=== PATIENT | female | born 1950 | race Caucasian/White ===

== ENCOUNTER → 2019-11-23 12:53 | Outpatient (BNVA) | payer MEDICARE, SELFPAY | PROVIDERS: Family Provider Family Medicine; Visit Provider Internal Medicine | DX: E03.9 Hypothyroidism, unspecified (principal); I48.91 Unspecified atrial fibrillation | CPT/HCPCS: 99203 ==

== ENCOUNTER 2020-01-10 15:46 | Outpatient (CLI) | payer MEDICARE, SELFPAY ==
[2020-01-10 16:43] LABS: Free T4 Free Thyroxine 1.87 ng/dL (0.82-1.77); Thyroid Stimulating Hormone 0.33 uIU/mL (0.27-4.20)
== END 2020-01-10 15:47 | disposition home or self-care (01) ==
LOC: LAB 15:52
PROVIDERS: PCP Internal Medicine; Visit Provider Internal Medicine
DX: E03.9 Hypothyroidism, unspecified (principal); I48.91 Unspecified atrial fibrillation; K21.9 Gastro-esophageal reflux disease without esophagitis; M79.7 Fibromyalgia
CPT/HCPCS: 84439; 84443; 99214

== ENCOUNTER 2020-03-02 08:16 | Outpatient (CLI) | payer MEDICARE, SELFPAY ==
--- NOTE | 2020-03-02 08:20 | MM_ITS ---
WS: [id number] SCREENING DIGITAL MAMMOGRAM WITH CAD HISTORY: SCREENING COMPARISON: 07/09/2017 and 01/17/2016 Bilateral CC and MLO views submitted. Computer aided detection analyzed. Breast composition: There are scattered areas of fibroglandular density. No suspicious masses, microc alcifications or architectural distortion. MM/[place] [id number] IMPRESSION: BI-RADS: 1-Negative FOLLOW UP: 1 Year Follow-up
== END 2020-03-02 08:17 | disposition home or self-care (01) ==
LOC: RADSHAW 08:18
PROVIDERS: PCP Internal Medicine; Visit Provider Internal Medicine
DX: Z12.31 Encounter for screening mammogram for malignant neoplasm of breast (principal)
CPT/HCPCS: 77067

== ENCOUNTER → 2020-03-14 10:47 | Outpatient (BNVA) | payer MEDICARE, SELFPAY | PROVIDERS: PCP Internal Medicine; Visit Provider Internal Medicine | DX: E03.9 Hypothyroidism, unspecified (principal); I48.91 Unspecified atrial fibrillation; K21.9 Gastro-esophageal reflux disease without esophagitis; M79.7 Fibromyalgia | CPT/HCPCS: 99214 ==

== ENCOUNTER 2020-05-05 12:26 | Outpatient (CLI) | payer MEDICARE, SELFPAY ==
[2020-05-05 13:19] LABS: Free T4 Free Thyroxine 1.72 ng/dL (0.82-1.77); Thyroid Stimulating Hormone 0.63 uIU/mL (0.27-4.20)
== END 2020-05-05 12:27 | disposition home or self-care (01) ==
PROVIDERS: PCP Internal Medicine; Visit Provider Internal Medicine
DX: E03.9 Hypothyroidism, unspecified (principal)
CPT/HCPCS: 36415; 84439; 84443

== ENCOUNTER → 2020-05-12 10:40 | Outpatient (BNVA) | payer MEDICARE, SELFPAY | PROVIDERS: PCP Internal Medicine; Visit Provider Internal Medicine | DX: E03.9 Hypothyroidism, unspecified (principal); I48.91 Unspecified atrial fibrillation; K21.9 Gastro-esophageal reflux disease without esophagitis; M79.7 Fibromyalgia; R19.7 Diarrhea, unspecified | CPT/HCPCS: 99214 ==

== ENCOUNTER 2020-07-07 15:34 | Outpatient (CLI) | payer MEDICARE, SELFPAY ==
--- NOTE | 2020-07-07 15:57 | USR_ITS ---
PROCEDURE INFORMATION: Exam: US Duplex Left Lower Extremity Veins, Limited Exam date and time: 07/07/2020 4:13 PM Age: 69 years old Clinical indication: Pain; Leg, upper and leg, lower; Left; Prior surgery; Surgery date: 6+ months; Surgery type: Lt knee; Additional info: Lt leg pain and swelling TECHNIQUE: Imaging protocol: Real-time Duplex ultrasound of the Left Lower Extremity with 2-D coppola scale, color Doppler flow and spectral waveform analysis with image documentation. Limited exam focused on the left lower extremity veins. COMPARISON: No relevant prior studies available. FINDINGS: Left deep veins: Unremarkable. The common femoral, femoral, proximal profunda femoral and popliteal veins are patent without thrombus. Normal Doppler waveforms. Normal compressibility and/or augmentation response. Left superficial veins: There is thrombus throughout the left small saphenous vein and there also some thrombosed superficial varicosities in the left calf. Soft tissues: Unremarkable. US/CV venous duplex [facility] [id number] IMPRESSION: 1. No evidence of deep vein thrombosis. 2. Superficial venous thrombosis in the small saphenous vein and varicosities in the calf.
== END 2020-07-07 15:35 | disposition home or self-care (01) ==
LOC: RAD 15:41
PROVIDERS: PCP Internal Medicine; Visit Provider Nurse Practitioner Family
DX: M79.662 Pain in left lower leg (principal); I83.90 Asymptomatic varicose veins of unspecified lower extremity
CPT/HCPCS: 93971

== ENCOUNTER 2020-11-15 09:19 | Outpatient (CLI) | payer MEDICARE, SELFPAY ==
--- NOTE | 2020-11-15 09:30 | USCV_ITS ---
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 PROCEDURES: The venous duplex Doppler examination of both lower extremities was performed in the standard fashion. The following venous structures were evaluated: common femoral vein, the greater saphenous vein, femoral vein, and the popliteal vein, and the ptv veins and ssv. FINDINGS: See tech notes The veins were found to be easily compressible with spontaneous blood flow. Non pulsatile flow pattern. CONCLUSIONS 1. No evidence of DVT in the above-mentioned identifiable veins. 2. Significant venous reflux of greater than 500 ms were noted at the proximal, mid, distal and below-knee segments of the greater saphenous vein on the right side. The venous segments were measuring anywhere from 0.47 to 0.59 cm in diameter. The above-knee venous segments were greater than 1 cm deep from the surface. No significant reflux in the small saphenous veins 3. On the left side, significant venous reflux of greater than 500 ms were noted throughout the greater saphenous vein segments including the saphenofemoral junction. These venous segments were measuring anywhere from 0.41 to 0.84 cm in diameter. But all these segments were less than 1 cm deep from the surface. 4. The proximal small saphenous vein segment on the left side also was found to have significant reflux of greater than 500 ms. The venous segments were found to be around 1 cm deep from the surface. 5. A large superficial , posterior accessory vein on the right side, draining into the greater saphenous vein was found to have thrombus. Compared to the study from 07/09/2017, more venous segments are found to have significant reflexes. Dr Soheila Harris MD [facility] (Electronically Signed) Final Date: 20 November 2020 09:29 S
== END 2020-11-15 09:20 | disposition home or self-care (01) ==
LOC: US 09:23
PROVIDERS: PCP Internal Medicine; Visit Provider Internal Medicine Cardiovascular Disease
DX: I82.812 Embolism and thrombosis of superficial veins of left lower extremity (principal); I83.813 Varicose veins of bilateral lower extremities with pain; I87.2 Venous insufficiency (chronic) (peripheral)
CPT/HCPCS: 93970

== ENCOUNTER → 2020-12-04 13:00 | Outpatient (BNVA) | payer MEDICARE, SELFPAY | PROVIDERS: PCP Internal Medicine; Visit Provider Podiatrist Foot & Ankle Surgery | DX: M25.572 Pain in left ankle and joints of left foot (principal) | CPT/HCPCS: 73630 ==

== ENCOUNTER → 2021-04-20 10:19 | Outpatient (BNVA) | payer MEDICARE, SELFPAY | PROVIDERS: PCP Family Medicine; Visit Provider Internal Medicine | DX: E03.9 Hypothyroidism, unspecified (principal); I48.91 Unspecified atrial fibrillation; M79.7 Fibromyalgia; K21.9 Gastro-esophageal reflux disease without esophagitis; R19.7 Diarrhea, unspecified; N89.8 Other specified noninflammatory disorders of vagina; Z87.891 Personal history of nicotine dependence | CPT/HCPCS: 36415; 84439; 84443; 99214 ==

== ENCOUNTER 2021-04-20 11:30 | Outpatient (CLI) | payer MEDICARE, SELFPAY ==
[2021-04-20 13:33] LABS: Thyroid Stimulating Hormone 0.65 uIU/mL (0.27-4.20)
== END 2021-04-20 11:31 | disposition home or self-care (01) ==
PROVIDERS: PCP Family Medicine; Visit Provider Internal Medicine
DX: E03.9 Hypothyroidism, unspecified (principal)
CPT/HCPCS: 36415; 84439; 84443

== ENCOUNTER → 2021-10-19 10:50 | Outpatient (BNVA) | payer MEDICARE, SELFPAY | PROVIDERS: PCP Family Medicine; Visit Provider Internal Medicine | DX: Z87.891 Personal history of nicotine dependence (principal); E03.9 Hypothyroidism, unspecified; E11.9 Type 2 diabetes mellitus without complications; I48.91 Unspecified atrial fibrillation; M79.7 Fibromyalgia; K21.9 Gastro-esophageal reflux disease without esophagitis; R19.7 Diarrhea, unspecified; N89.8 Other specified noninflammatory disorders of vagina | CPT/HCPCS: 99214 ==

== ENCOUNTER 2021-10-23 09:59 | Outpatient (CLI) | payer MEDICARE, SELFPAY ==
--- NOTE | 2021-10-23 10:11 | MM_ITS ---
WS: [email or web address] VIEWS: MLO and CC views both breasts. 3D digital tomosynthesis is also included in this exam. Comparison made with prior exam of 04/24/2012, 07/26/2014, 01/17/2016, 07/09/2017, 03/02/2020.. Findings: Questionable new 3 mm nodular densities seen in the lateral inferior left breast. This is seen only o n the MLO view and the lateral tomographic sections. Additional stable appearing nodular densities in both breasts. No suspicious calcification or architectural distortion.Scattered fibroglandular densi ties. Compression spot imaging of the left breast as well as regional ultrasound recommended for further wo rkup. MM/[place] [id number] Impression: BI-RADS: 0-Incomplete: Need additional imaging evaluation FOLLOW-UP: See Report This mammogram was also analyzed by the Computer Aided Detection System R2 Imag e Water Fabricator Operator.
== END 2021-10-23 10:00 | disposition home or self-care (01) ==
LOC: RAD 10:00
PROVIDERS: PCP Family Medicine; Visit Provider Family Medicine
DX: Z12.31 Encounter for screening mammogram for malignant neoplasm of breast (principal)
CPT/HCPCS: 77063; 77067

== ENCOUNTER 2021-11-07 09:08 | Outpatient (CLI) | payer MEDICARE, SELFPAY ==
--- NOTE | 2021-11-07 09:33 | US_ITS ---
WS: [email or web address] Exam: US breast LT limited* [id number] Date/Time of Exam: 11/07/2021 10:17 AM Reason For Exam: BREAST MASS Regional ultrasound of the left breast is performed from the 5:00 to the 7:00 position. There was no sign of suspicious solid mass or nodule. No cysts were identified in this region. The 3 mm nodule reported on recent mammography and compression spot images cannot be localized with ultraso und. Recommendations: 6 month follow-up left mammogram for surveillance to detect any change. US/US breast LT limited* [id number] IMPRESSION: 1. No suspicious solid mass or nodule identified. BI-RADS Category 3.
--- NOTE | 2021-11-07 09:33 | MM_ITS ---
WS: [email or web address] VIEWS: MLO and 90 degree lateral views of the left breast are obtained. Compression spot MLO and late ral images also included in this series. 3D digital tomosynthesis is also performed.. Comparison made with prior exam of 10/23/2021. Findings: Again noted is a 3 mm nodule in the inferior left breast lateral to the nipple line. This nodule may have a small fatty hilum and might indicate an intramammary lymph node. No architectural distortion o r suspicious calcification is seen. Scattered stable-appearing fibroglandular densities noted through out the right breast. Further workup with regional ultrasound is recommended. MM/[place] [id number] Impression: BI-RADS: 0-Incomplete: Need additional imaging evaluation FOLLOW-UP: See Report This mammogram was also analyzed by the Computer Aided Detection System R2 Imag e Private Tutor.
== END 2021-11-07 09:09 | disposition home or self-care (01) ==
PROVIDERS: PCP Family Medicine; Visit Provider Family Medicine
DX: N63.23 Unspecified lump in the left breast, lower outer quadrant (principal)
CPT/HCPCS: 76642; 77061

== ENCOUNTER → 2021-12-18 10:54 | Outpatient (BNVA) | payer MEDICARE, SELFPAY | PROVIDERS: PCP Family Medicine; Visit Provider Internal Medicine | DX: E03.9 Hypothyroidism, unspecified (principal); I48.91 Unspecified atrial fibrillation; K21.9 Gastro-esophageal reflux disease without esophagitis | CPT/HCPCS: 99214 ==

== ENCOUNTER → 2022-03-15 11:50 | Outpatient (BNVA) | payer BC, SELFPAY | PROVIDERS: PCP Family Medicine; Visit Provider Family Medicine | DX: Z13.6 Encounter for screening for cardiovascular disorders (principal); Z13.1 Encounter for screening for diabetes mellitus; R19.7 Diarrhea, unspecified; Z12.11 Encounter for screening for malignant neoplasm of colon | CPT/HCPCS: 80053; 80061; 86364 ==

== ENCOUNTER → 2022-04-01 10:36 | Outpatient (BNVA) | payer MEDICARE, SELFPAY | PROVIDERS: PCP Family Medicine; Visit Provider Internal Medicine Cardiovascular Disease | DX: I83.813 Varicose veins of bilateral lower extremities with pain (principal); I48.91 Unspecified atrial fibrillation; K21.9 Gastro-esophageal reflux disease without esophagitis; E03.9 Hypothyroidism, unspecified; Z87.891 Personal history of nicotine dependence | CPT/HCPCS: 99214; Q3014 ==

== ENCOUNTER 2022-05-08 10:13 | Outpatient (CLI) | payer MEDICARE, SELFPAY ==
--- NOTE | 2022-05-08 10:19 | MM_ITS ---
WS: [email or web address] ADDITIONAL VIEWS LEFT MAMMOGRAM WITH DIGITAL BREAST TOMOSYNTHESIS. HISTORY: 6MFU COMPARISON: 11/07/2021, 10/24/1999 2200 03/02/2020 Additional views LEFT breast in CC, MLO projections and true ML submitted with digital breast tomosyn thesis and SM. Spot compression LEFT MLO. 4 to 5 mm nodule is reidentified along the inferior posterior LEFT breast near the inframammary fold. This has not increased in size and does measure just slightly smaller. This nodule would not likely be visualized by ultrasound. Due to stability no ultrasound will be obtained today. Patient to follow -up in 6 months for annual mammogram. MM/[place] [id number] IMPRESSION: BI-RADS: 3-Probably Benign FOLLOW UP: 6 Month Follow-up Patient to return in October 2022 for annual mammogram. This very small nodule a long the inferior posterior LEFT breast can be reevaluated at that that time.
== END 2022-05-08 10:14 | disposition home or self-care (01) ==
PROVIDERS: PCP Family Medicine; Visit Provider Family Medicine
DX: R92.8 Other abnormal and inconclusive findings on diagnostic imaging of breast (principal)
CPT/HCPCS: 77061; G0279

== ENCOUNTER 2022-06-18 11:32 | Outpatient (CLI) | payer BC, SELFPAY ==
[2022-06-18 13:42] LABS: Free T4 Free Thyroxine 1.47 ng/dL (0.82-1.77); Thyroid Stimulating Hormone 1.08 uIU/mL (0.27-4.20)
== END 2022-06-18 11:33 | disposition home or self-care (01) ==
PROVIDERS: PCP Family Medicine; Visit Provider Internal Medicine
DX: E03.9 Hypothyroidism, unspecified (principal); I48.91 Unspecified atrial fibrillation
CPT/HCPCS: 36415; 84439; 84443

== ENCOUNTER 2022-06-25 08:28 | Outpatient (CLI) | payer BC, SELFPAY ==
--- NOTE | 2022-06-25 08:35 | CT_ITS ---
WS: [id number] CT NECK WITH CONTRAST HISTORY: CHRONIC COUGH, PAIN IN THROAT, DYSPHAGIA TECHNIQUE: Contiguous 5 mm axial images are performed through the neck with intravenous contrast. Sag ittal and coronal reformats are also submitted. All CT scans at [facility] use at least one o f these dose optimization techniques: automated exposure control; mA and/or kV adjustment per patient size (includes targeted exams where dose is matched to clinical indication); or iterative reconstruc tion. CONTRAST: CONTRAST: Omnipaque 350; 100 mL IV. DLP: 147.22 mGy.cm COMPARISON: None available. Nasopharynx, oropharynx, hypopharynx and larynx are unremarkable. No soft tissue masses or abnormal e nhancement. No abnormality identified along the roof of the mild broad-based. Torus tubarius and fossa of Rosenmuller and parapharyngeal fat are normal. No significant lymphadenopathy is identified. Peripherally calcified 10 mm nodule superior RIGHT thyroid. There is an additional smaller mid thyroi d nodule on the RIGHT. No osseous abnormalities. Visualized portions of the skull base demonstrate no abnormalities. Orbits and globes are within norm al limits. No soft tissue masses. Visualized paranasal sinuses and mastoid air cells are normal. Spiculated nodule measuring 14 x 15 mm at the RIGHT apex. This is asymmetric to the LEFT. CT/CT neck w con* [id number] IMPRESSION: 1. No neck mass or abnormality noted in the oral cavity. 2. No cervical chain lymphadenopathy. 3. Spiculated nodule RIGHT upper lobe measures 14 x 15 mm. Recommend follow-up chest CT with IV contrast versus PET/CT imaging. Differential includes neoplas m versus pulmonary fibrosis.
--- NOTE | 2022-06-25 08:36 | FL_ITS ---
WS: [email or web address] Barium swallow and esophagram, 06/25/2022 Clinical Data: CHRONIC COUGH, PAIN IN THROAT, DYSPHAGIA Comparison: None. Fluoroscopy time: 0min [id number] # of spot films: Findings: The patient swallowed the thick and thin barium, and it flowed through the hypopharynx without hesita tion. No stricture, mass, polyp or erosion was seen. The barium entered the esophagus and there was normal motility throughout. There is minimal irregular ity of the esophageal surface in the distal half of the esophagus. There was no hiatal hernia but the re is minimal gastroesophageal reflux. No polyp, mass, erosion or ulcer could be seen. FL/FL barium swallow [id number] Impression: 1. Minimal irregularity of this mucosal surface of the distal half of the esoph yessenia. 2. No hiatal hernia but there is minimal gastroesophageal reflux.
[2022-06-25 09:01] LABS: Blood Urea Nitrogen 17 mg/dL (8-23); Glomerular Filtration Rate 49.2 mL/min (90-130)
[2022-06-25] MEDS: iohexol 350 mg/mL 500 mL Btl (per mL) IV (09:10)
== END 2022-06-25 08:29 | disposition home or self-care (01) ==
PROVIDERS: Radiology Neuroradiology; PCP Family Medicine; Visit Provider Otolaryngology
DX: R05.3 Chronic cough (principal); R13.12 Dysphagia, oropharyngeal phase; R91.1 Solitary pulmonary nodule
CPT/HCPCS: 70491; 74220; 82565; 84520; Q9967

== ENCOUNTER 2022-08-06 09:41 | Outpatient (CLI) | payer BC, SELFPAY ==
--- NOTE | 2022-08-06 09:52 | CT_ITS ---
WS: [email or web address] CT chest w con* [id number] HISTORY: CHRONIC COUGH, SOLITARY PULMONARY NODULE TECHNIQUE: Axial imaging performed through the thorax. Coronal and sagittal reformats are submitted. All CT scans at [facility] use at least one of these dose optimization techniques: automated exposure control; mA and/or kV adjustment per patient size (includes targeted exams where dose is mat ched to clinical indication); or iterative reconstruction. CONTRAST: Omnipaque 350; 100 mL IV. DLP: 182.83 mGy.cm COMPARISON: Neck CT 06/25/2022 Lungs and central airway: Mild emphysema. Slightly spiculated nodule with adjacent groundglass attenu ation at the RIGHT apex. Solid component measures 1.5 x 0.7 cm. There is mild pleural tag towards the apex. This nodule corresponds to the nodule recently described on the prior neck CT. The nodule appe ars slightly smaller in size with less adjacent groundglass attenuation. Scattered granulomata. No ad ditional masses or nodules. Pleura: Normal. No pleural effusion. Heart and pericardium: Moderately enlarged heart. Marked enlargement of the RIGHT atrium. Mediastinum and prudence: No mediastinum or hilar adenopathy. Vessels: Mild atherosclerosis aorta. Normal size pulmonary artery. Chest wall and lower neck: No soft tissue masses. Upper abdomen: No adrenal mass. Visualized portions of the liver and spleen are negative. Osseous structures: No destructive process. CT/CT chest w con* [id number] IMPRESSION: 1. Spiculated mass with surrounding groundglass attenuation RIGHT apex. Solid component measures 1.5 x 0.7 cm. Slight improvement in the size since 06/25/2022 . Differential includes neoplasm and pneumonia/pneumonitis. Recommend PET/CT im aging at this time versus [address] with IV contrast follow-up. 2. Cardiomegaly with moderate enlargement of the RIGHT atrium. 3. Mild atherosclerosis aorta. 4. Prior granulomatous disease.
[2022-08-06] MEDS: iohexol 350 mg/mL 500 mL Btl (per mL) IV (10:04)
== END 2022-08-06 09:42 | disposition home or self-care (01) ==
PROVIDERS: PCP Family Medicine; Visit Provider Specialist
DX: R91.1 Solitary pulmonary nodule (principal); R05.3 Chronic cough; I51.7 Cardiomegaly; I70.0 Atherosclerosis of aorta
CPT/HCPCS: 71260; Q9967

== ENCOUNTER → 2022-08-22 11:31 | Outpatient (BNVA) | payer BC, SELFPAY | PROVIDERS: PCP Family Medicine; Visit Provider Family Medicine | DX: K21.9 Gastro-esophageal reflux disease without esophagitis (principal); R91.8 Other nonspecific abnormal finding of lung field | CPT/HCPCS: 80053; 82306; 82607; 85025 ==

== ENCOUNTER 2022-10-30 13:43 | Outpatient (CLI) | payer MEDICARE, SELFPAY ==
--- NOTE | 2022-10-30 14:00 | CT_ITS ---
WS: [email or web address] CT chest w con* [id number] HISTORY: Spiculated mass w groundglass attenuation RIGHT apex TECHNIQUE: Axial imaging performed through the thorax. Coronal and sagittal reformats are submitted. All CT scans at [facility] use at least one of these dose optimization techniques: automated exposure control; mA and/or kV adjustment per patient size (includes targeted exams where dose is mat ched to clinical indication); or iterative reconstruction. CONTRAST: Omnipaque 350; 100 mL IV. DLP: 190.12 mGy.cm COMPARISON: 08/06/2022 and 06/25/2022 Lungs and central airway: Hyperinflated lungs from centrilobular emphysema. Reidentified is a slightl y spiculated nodule with groundglass attenuation at the RIGHT apex. Nodule measures 17 x 10 mm. Not s ignificantly changed in size since 08/06/2022. No additional pulmonary mass or nodule. No pneumonia. A dditional benign pulmonary granulomas are calcified. Pleura: Normal. No pleural effusion. Heart and pericardium: Markedly enlarged heart. There is marked dilatation of the RIGHT atrium. Simil ar to the prior study. No pericardial or pleural effusion. Mediastinum and prudence: No mediastinum or hilar adenopathy. Vessels: Normal size aortic and pulmonary artery. No coronary artery calcifications. Chest wall and lower neck: Densely calcified RIGHT thyroid nodule at 13 mm is unchanged. Upper abdomen: Normal. Osseous structures: No destructive process. IMPRESSION: 1. Spiculated nodule with groundglass attenuation in the RIGHT apex is stable at 17 x 10 mm. No signi ficant increase in size since 08/06/2022. Recommend continued surveillance of this nodule to exclude m alignancy. At this time PET/CT imaging can be performed versus 6-month chest CT follow-up. 2. No mediastinal or hilar adenopathy. 3. Marked cardiomegaly. Significant RIGHT atrial enlargement.
[2022-10-30 14:44] LABS: Blood Urea Nitrogen 14 mg/dL (8-23); Glomerular Filtration Rate 62.1 mL/min (90-130)
[2022-10-30] MEDS: iohexol 350 mg/mL 500 mL Btl (per mL) IV (14:50)
== END 2022-10-30 13:44 | disposition home or self-care (01) ==
PROVIDERS: PCP Family Medicine; Visit Provider Family Medicine
DX: R91.8 Other nonspecific abnormal finding of lung field (principal); I51.7 Cardiomegaly
CPT/HCPCS: 71260; 82565; 84520; Q9967

== ENCOUNTER → 2022-11-12 14:08 | Outpatient (BNVA) | payer MEDICARE, SELFPAY | PROVIDERS: PCP Family Medicine; Referring Provider Family Medicine; Visit Provider Internal Medicine Pulmonary Disease | DX: R91.1 Solitary pulmonary nodule (principal); I51.7 Cardiomegaly; R05.3 Chronic cough; Z87.891 Personal history of nicotine dependence | CPT/HCPCS: 99204 ==

== ENCOUNTER 2022-11-25 12:45 | Outpatient (CLI) | payer MEDICARE, SELFPAY ==
--- NOTE | 2022-11-25 13:00 | USCV_ITS ---
Marichuy Boyd Age: 71 Gender: F : 1950 Exam Date: 11/25/2022 13:08 Ordering Phys: Black Bartholomew MD Technologist: Tamiko James Exam Location: [facility] [place] Indication: CONRAD BP: 153 / 82 HR: 57 Rhythm: Sinus Technical Quality: Adequate MEASUREMENTS (Male / Female) Normal Values 2D ECHO LV Diastolic Diameter PLAX 5.5 cm 4.2 - 5.9 / 3.9 - 5.3 cm LV Systolic Diameter PLAX 3.1 cm IVS Diastolic Thickness 0.6 cm 0.6 - 1.0 / 0.6 - 0.9 cm IVS Systolic Thickness 1.3 cm LVPW Diastolic Thickness 0.7 cm 0.6 - 1.0 / 0.6 - 0.9 cm LVPW Systolic Thickness 1.4 cm LVOT Diameter 2.0 cm LV Ejection Fraction 2D Teich 73.6 % LV Ejection Fraction MOD 2C 72.8 % LV Ejection Fraction 2C AL 73.1 % LA Diameter 3.1 cm LA Width 3.6 cm LA Height 4.6 cm RA Width 4.2 cm RA Height 5.8 cm Aorta at Sinotubular Diameter 2.9 cm IVC Diameter 2.7 cm M-MODE Aortic Annulus Diameter 2.9 cm LA Ao Ratio MM 1.2 MV E Point Septal Separation 0.5 cm DOPPLER MV Peak Velocity 102.0 cm/s MV Area PHT 3.6 cm squared Mitral E to A Ratio 0.7 MV E' Velocity 36.0 cm/s Mitral E to MV E' Ratio 5.2 Mitral E to LV E' Lateral Ratio 6.5 Mitral E to LV E' Septal Ratio 4.3 TR Peak Velocity 144.0 cm/s TR Peak Gradient 8.3 mmHg Right Atrial Pressure 5.0 mmHg Pulmonary Artery Systolic Pressu 13.3 mmHg PV Peak Velocity 81.0 cm/s RV Acceleration Time 0.2 s RV Ejection Time 0.3 s RV AcT/ET 0.5 FINDINGS Left Ventricle Left ventricle is mildly dilated. LV systolic function is normal with EF of 55 to 60%. No regional wall motion abnormalities are seen.Grade 1 diastolic dysfunction Right Ventricle Normal in size and function Right Atrium Normal in size Left Atrium Normal in size Mitral Valve Structurally normal mitral valve. Trace mitral regurgitation Aortic Valve Structurally normal aortic valve. Trace aortic regurgitation. Tricuspid Valve Mild tricuspid regurgitation. Insufficient TR jet to calculate RVSP. Pulmonic Valve Mild pulmonic regurgitation Pericardium Normal Aorta Normal in size IVC Dilated CONCLUSIONS Left ventricle is mildly dilated. LV systolic function is normal with EF of 55 to 60%. Grade 1 diastolic dysfunction. Trace mitral regurgitation. Trace aortic regurgitation Mild tricuspid regurgitation Mild pulmonic regurgitation Compared to prior echocardiogram from 2019, patient has mildly increased LV cavity size. Theron Hensley MD (Electronically Signed) Final Date: 30 November 2022 22:21 S
== END 2022-11-25 12:46 | disposition home or self-care (01) ==
PROVIDERS: PCP Family Medicine; Visit Provider Internal Medicine Pulmonary Disease
DX: I08.3 Combined rheumatic disorders of mitral, aortic and tricuspid valves (principal); R06.02 Shortness of breath
CPT/HCPCS: 93306

== ENCOUNTER 2022-11-28 13:33 | Outpatient (CLI) | payer MEDICARE, SELFPAY ==
[2022-11-28 14:00] VITALS: PULSE 73; RESP 18; O2SAT 99
[2022-11-28] MEDS: albuterol 2.5 mg/3 mL Neb INHALATION (14:04)
[2022-11-28 14:05] VITALS: PULSE 75
== END 2022-11-28 13:34 | disposition home or self-care (01) ==
PROVIDERS: PCP Family Medicine; Visit Provider Specialist
DX: J32.8 Other chronic sinusitis (principal)
CPT/HCPCS: 94060; 94726; 94729; J7613

== ENCOUNTER → 2022-11-29 08:47 | Outpatient (BNVA) | payer MEDICARE, SELFPAY | PROVIDERS: PCP Family Medicine; Visit Provider Internal Medicine | DX: E03.9 Hypothyroidism, unspecified (principal); K21.9 Gastro-esophageal reflux disease without esophagitis; R91.1 Solitary pulmonary nodule; Z79.890 Hormone replacement therapy | CPT/HCPCS: 99215 ==

== ENCOUNTER 2022-11-30 05:31 | Outpatient (CLI) | payer MEDICARE, SELFPAY ==
--- NOTE | 2022-11-30 12:00 | PETR_ITS ---
PROCEDURE INFORMATION: Exam: PET/CT Skull Base to Mid-thigh Exam date and time: 11/30/2022 12:11 PM Age: 71 years old Clinical indication: Abnormal findings; 1. Spiculated nodule with groundglass attenuation in the right apex is stable at 17 x 10 mm. No. Significant increase in size since 08/06/2022. Recommend continued surveillance of this nodule to. Exclude malignancy. At this time pet/ct imaging can be performed versus 6-month chest CT follow-up. ; Additional info: Lung mass LABS AND CLINICAL REPORTS: Glucose: 101 mg/dl Treatment strategy for malignancy (PET staging): Initial Staging (PI) TECHNIQUE: Imaging protocol: Following at least four-hour fasting and following the injection of radiopharmaceutical, low dose CT images were obtained. Then, PET images were obtained. Attenuation corrected images were constructed using the CT scan. Fused images of PET and CT were reviewed. The standardized uptake values (SUV) reported below are maximum values within a region of interest, expressed in gm/ml. Exam includes orbital meatal line to mid-thigh. Radiopharmaceutical: 14.61 mCi F-18 FDG (Fluorodeoxyglucose), IV. Time of imaging post radiopharmaceutical administration: 1 hour Injection site: Left antecubital COMPARISON: CT chest w con* [id number] 10/30/2022 2:49 PM, CT chest 08/06/2022 FINDINGS: Brain: Visualized brain has normal physiologic uptake. Pharynx: No abnormal uptake. Larynx: No abnormal uptake. Thyroid: Diffusely elevated uptake in the thyroid gland is noted, SUV max 4.2 on the right and 4.0 on the left. A calcified right thyroid nodule measures 8 mm. Lungs, pleura and trachea: In the right lung apex a part solid and part ground-glass nodule measuring 2.7 x 1.6 cm on series 3, image 40 is noted, SUV max 2.0. This nodule is not changed in size compared with 10/30/2022 and 08/06/2022 allowing for differences in measurement technique between the current and prior study. A right lower lobe calcified granuloma is present. Heart: Normal physiologic uptake. Mediastinal space: No abnormal uptake. Liver: No abnormal uptake. Gallbladder and bile ducts: No abnormal uptake. Pancreas: No abnormal uptake. Spleen: No abnormal uptake. Adrenal glands: No abnormal uptake. Kidneys and ureters: Normal physiologic uptake. Stomach and bowel: No abnormal uptake. Vasculature: No abnormal uptake. Lymph nodes: There are calcified mediastinal and right hilar lymph nodes which demonstrate elevated activity which is greatest in the right hilar region, SUV max 4.9 on PET series 4, image 59. Bones/joints: [id number] diffuse degenerative vertebral body spondylosis is noted. No abnormal uptake in the osseous structures is noted. Soft tissues: No abnormal uptake in the visualized head, neck, chest, abdomen, pelvis, and extremities. Asymmetric soft tissue density in the superolateral left breast has been stable since at least 08/06/2022 measuring approximately 1.4 x 0.8 cm in the axial plane on series 3, image 65, SUV max 0.7. METRICS: Mediastinal blood pool: SUV max 2.6 PET/PET [place] SUBSEQ [id number] IMPRESSION: 1. A part solid, part ground-glass nodule in the right lung apex is unchanged in size compared with at least 08/06/2022. This nodule demonstrates low-level activity (SUV max 2.0) which favors a benign etiology, however assessment of semi solid nodules can be limited by PET-CT. A malignant etiology cannot be excluded from this exam. 2. Radiotracer avid mediastinal and right hilar calcified lymph nodes are present, likely related to granulomatous infectious involvement. A malignant etiology is not favored. 3. Uptake in the thyroid gland is identified. The diffuse degree of uptake favors a benign etiology such as thyroiditis rather than malignancy. 4. A small focus of soft tissue density in the superior lateral left breast is unchanged in morphology and without elevated uptake, likely representing normal asymmetric breast tissue. 5. Additional nonurgent findings as detailed above.
== END 2022-11-30 05:32 | disposition home or self-care (01) ==
PROVIDERS: PCP Family Medicine; Visit Provider Internal Medicine Pulmonary Disease
DX: R91.8 Other nonspecific abnormal finding of lung field (principal)
CPT/HCPCS: 78815; A9552

== ENCOUNTER → 2022-12-13 11:10 | Outpatient (BNVA) | payer MEDICARE, SELFPAY | PROVIDERS: PCP Family Medicine; Visit Provider Internal Medicine Pulmonary Disease | DX: R91.1 Solitary pulmonary nodule (principal); I51.7 Cardiomegaly; R05.3 Chronic cough; Z87.891 Personal history of nicotine dependence | CPT/HCPCS: 99214 ==

== ENCOUNTER 2023-01-17 02:57 | Emergency (ER) | payer MEDICARE, SELFPAY ==
[2023-01-17 03:06] VITALS: BP 166/115; PULSE 67; RESP 14; TEMP 36.4; O2SAT 97
--- NOTE | 2023-01-17 03:07 | ECG_ITS ---
[facility] Test Date: 2023-01-17 Pat Name: Marichuy Boyd Department: Room: Gender: Female Sap Hana Developer: : 1950 Requested By: Onur Mcnally Order Number: [id number] Dawson MD: Soheila Harris M.D. Measurements Intervals [place] Rate: 61 P: 58 AR: 237 QRS: -32 QRSD: 104 T: 40 QT: 397 QTc: 401 Interpretive Statements SINUS RHYTHM WITH FIRST DEGREE AV BLOCK LEFT AXIS DEVIATION [QRS AXIS < -30] INCOMPLETE RIGHT BUNDLE BRANCH BLOCK [90+ ms QRS DURATION, TERMINAL R IN V1/V2, 40+ ms S IN I/aVL/V4/V5/V6] MODERATE VOLTAGE CRITERIA FOR LVH, CONSIDER NORMAL VARIANT [MEETS CRITERIA IN ONE OF: R(aVL), S(V1), R(V5), R(V5/V6)+S(V1)] POSSIBLE SEPTAL MYOCARDIAL INFARCTION , OF INDETERMINATE AGE [30 ms Q WAVE IN V1/V2] Compared to ECG 07/18/2018 06:45:05 Left-axis deviation now presentIncomplete right bundle-branch block now present Myocardial infarct finding now present. Sinus bradycardia no longer present T-wave abnormality no longer present Electronically Signed On 01-17-2023 20:46:50 ADMINISTRATIVE AIDE by Soheila Harris M.D. [id number]
[2023-01-17 03:33] VITALS: BP 149/84; PULSE 53; RESP 30; O2SAT 96
--- NOTE | 2023-01-17 03:35 | XRR_ITS ---
PROCEDURE INFORMATION: Exam: XR Chest Exam date and time: 01/17/2023 5:09 AM Age: 72 years old Clinical indication: Tachypnea; Patient HX: Patient says they found a spot on lung couple moths ago that they are watching; Additional info: Tachycardia TECHNIQUE: Imaging protocol: Radiologic exam of the chest. Views: 1 view. COMPARISON: CT chest w con* [id number] 10/30/2022 2:49 PM FINDINGS: Lungs: Emphysematous change, interstitial prominence, chronic granulomatous disease. Pleural spaces: No pleural effusion. Heart/Mediastinum: Cardiac silhouette upper limits of normal size. Bones/joints: Degenerative change. XR/XR chest 1V portable [id number] IMPRESSION: Emphysematous change, interstitial prominence, chronic granulomatous disease.
[2023-01-17 03:44] LABS: Basophils # 0.1 10^3/uL (0.0-0.1); Basophils % 1.5 %; Eosinophils # 0.2 10^3/uL (0.0-0.8); Eosinophils % 4.7 %; Hematocrit 46.4 % (36-47); Lymphocytes # 1.8 10^3/uL (0.8-4.8); Lymphocytes % 44.4 %; Mean Corpuscular Hemoglobin 29.1 pg (27-33); Mean Corpuscular Volume 88.2 fl (85-98); Mean Platelet Volume 11.9 fL (7.4-10.4); Monocytes # 0.5 10^3/uL (0.2-0.9); Monocytes % 12.3 %; Neutrophils % 37.1 %; Nucleated Red Blood Cells % 0 %; Platelet Count 151 10^3/cmm (157-399); Red Blood Count 5.26 10^6/uL (3.85-5.65); Red Cell Distribution Width 13.4 % (12.1-15.1); White Blood Count 4.05 10^3/uL (3.29-11.43)
--- NOTE | 2023-01-17 03:45 | W.ED.ARRPALP ---
HPI - Arrhythmia/Palpitations General: Chief Complaint: Arrhythmia/Palpitations Stated Complaint: fast HR , high BP Time Seen by Provider: 01/17/23 03:02 History of Present Illness: Patient presents to the ER with complaints of fast heart rate, chest pain and high blood pressure. This all started approximately 2 hours ago. This woke the patient from sleep. Patient has had an episode of A-fib approximately 4 years ago that has not bothered her since then. Patient's heart rate is normally in the 50s and blood pressure is normally 120 over 80s. Patient did take 1 old metoprolol 25 mg about an hour ago and it seemed to help her blood pressure and heart rate. Patient is not having any pain at this time. Heart rate is in the 50s. Blood pressure is approximately 150/80. Review of Systems General: Reports: 10 or more systems reviewed and unremarkable except in HPI and below PFSH ED PFSH: Medical History Atrial fibrillation Fatty liver Hypothyroid Lichen planus Thyroid nodule Umbilical hernia Varicose veins of both lower extremities with pain Surgical History H/O foot surgery left H/O inguinal hernia repair bilateral History of hysterectomy History of lateral meniscus repair of left knee History of left knee surgery History of right knee surgery Family History Sister Cancer lung Brother Cancer lung Father CAD (coronary artery disease) Alzheimer disease Sister Stroke Other S/P CABG x 3 Social History Smoking and tobacco/nicotine status: former use of tobacco/nicotine Quit status (tobacco/nicotine): has quit using Year quit tobacco: age 32 Alcohol intake: never Substance/Drug Use: never Lives independently: Yes Household members: spouse Marital status: Number of children: 2 Number of grandchildren: 3 Current occupational status: retired Physical Exam Const: COMMON NORMALS: no acute distress, average body habitus, patient oriented x3, no limitations, healthy appearing, alert and well nourished HENMT: COMMON NORMALS: normocephalic, atraumatic, hearing grossly normal bilaterally, external ears normal, Normal external nose present, moist oral mucous membranes and oropharynx normal HEAD & SCALP: normocephalic and atraumatic NOSE: Normal external nose present EXTERNAL EAR: Yes external ears normal Neck/C-Spine: COMMON NORMALS: full ROM, no lymphadenopathy, supple, no meningeal signs and no JVD Chest: COMMONS NORMALS: normal inspection of the chest and normal palpation of entire chest wall Resp: COMMON NORMALS: normal respiratory effort, No retractions, No use of accessory muscles and clear to auscultation bilaterally AUSCULTATION: clear to auscultation bilaterally Cardio: COMMON NORMALS: no JVD, regular rate, regular rhythm, S1 normal heart sound present, S2 normal heart sound present, No gallops present (Cardio), No clicks present (Cardio) and No murmurs present (Cardio) RATE: regular rate RHYTHM: regular rhythm HEART SOUNDS: S1 normal heart sound present and S2 normal heart sound present GI: COMMON NORMALS: Normal to inspection, nondistended, normoactive bowel sounds present, Soft to palpation, non-tender, No hepatosplenomegaly present and no masses PALPATION: Yes Soft to palpation and Yes No hepatosplenomegaly present Neuro: COMMON NORMALS: patient oriented x3 SENSORIUM/ORIENTATION: Yes alert MENINGEAL SIGNS: Yes no meningeal signs Course Vital Signs: Vital signs: Vital Signs Temperature 97.6 F 01/17/23 03:06 Pulse Rate 47 L 01/17/23 05:11 Respiratory Rate 21 H 01/17/23 05:11 Blood Pressure 139/74 01/17/23 05:11 Pulse Oximetry 96 01/17/23 05:11 Oxygen Delivery Me thod Room Air 01/17/23 05:11 MDM - Arrhythmia/Palpitations Medical Decision Making Upon arrival to the ER patient's blood pressure was 116/115 and her heart rate was 67. Patient does not have any chest pain currently. Patient was worked up in a standard cardiac fashion. That included lab work, chest x-ray, serial EKGs, all of which did not show any Acute causeof patient's tachycardic episode. Patient was stable during her entire stay in ER. Patient will be discharged home to follow-up with her PCP within the next 7 to 10 days as needed. Differential Diagnosis Likely palpitations and sinus tachycardia; Unlikely anxiety, artial fibrillation, artial flutter, ventricular premature beats, supraventricular tachycardia, ventricular tachycardia or WPW Medical Records I reviewed the patient's medical records. Lab Data I reviewed the patient's lab results. 01/17/23 03:20 01/17/23 03:20 Laboratory Results WBC 4.05 10^3/uL (3.29-11.43) 01/17/23 03:20 RBC 5.26 10^6/uL (3.85-5.65) 01/17/23 03:20 Hgb 15.30 g/dL (11.27-16.99) 01/17/23 03:20 Hct 46.4 % (36-47) 01/17/23 03:20 MCV 88.2 fl (85-98) 01/17/23 03:20 MCH 29.1 pg (27-33) 01/17/23 03:20 MCHC 33.0 g/dL (30-55) 01/17/23 03:20 RDW 13.4 % (12.1-15.1) 01/17/23 03:20 Plt Count 151 10^3/cmm (157-399) L 01/17/23 03:20 MPV 11.9 fL (7.4-10.4) H 01/17/23 03:20 Neut % (Auto) 37.1 % 01/17/23 03:20 Lymph % (Auto) 44.4 % 01/17/23 03:20 [place] % (Auto) 12.3 % 01/17/23 03:20 Eos % (Auto) 4.7 % 01/17/23 03:20 Baso % (Auto) 1.5 % 01/17/23 03:20 Neut # (Auto) 1.50 10^3/uL (1.8-7.7) L 01/17/23 03:20 Lymph # (Auto) 1.8 10^3/uL (0.8-4.8) 01/17/23 03:20 [place] # (Auto) 0.5 10^3/uL (0.2-0.9) 01/17/23 03:20 Eos # (Auto) 0.2 10^3/uL (0.0-0.8) 01/17/23 03:20 Baso # (Auto) 0.1 10^3/uL (0.0-0.1) 01/17/23 03:20 Nucleated RBC % (auto) 0 % 01/17/23 03:20 Nucleated RBCs # 0.0 /100WBC 01/17/23 03:20 PT 13.00 SECONDS (12.1-14.9) 01/17/23 03:20 INR 0.96 (0.8-1.2) 01/17/23 03:20 Sodium 144 mmol/L (136-145) 01/17/23 03:20 Potassium 3.9 mmol/L (3.5-5.1) 01/17/23 03:20 Chloride 108 mmol/L (98-107) H 01/17/23 03:20 Carbon Dioxide 25 mmol/L (22-29) 01/17/23 03:20 Anion Gap 14.9 (5-19) 01/17/23 03:20 BUN 22 mg/dL (8-23) 01/17/23 03:20 Creatinine 0.8 mg/dL (0.5-0.9) 01/17/23 03:20 GFR Calculation 70.9 mL/min (90-130) L 01/17/23 03:20 Glucose 82 mg/dL (65-115) 01/17/23 03:20 Calculated Osmolality 300 mOsm/kg (285-295) H 01/17/23 03:20 Calcium 9.3 mg/dL (8.5-10.5) 01/17/23 03:20 Magnesium 2.4 mg/dL (1.7-2.3) H 01/17/23 03:20 Total Bilirubin 0.4 mg/dL (0.15-1.2) 01/17/23 03:20 AST 25 U/L (0-32) 01/17/23 03:20 ALT 21 U/L (0-33) 01/17/23 03:20 Alkaline Phosphatase 63 U/L (35-105) 01/17/23 03:20 Troponin T Baseline < 6 ng/L (0-10) 01/17/23 03:20 Total Protein 6.5 g/dL (6.6-8.7) L 01/17/23 03:20 Albumin 4.4 g/dL (3.5-5.2) 01/17/23 03:20 Globulin 2.1 g/dL (1.3-4.6) 01/17/23 03:20 TSH 1.55 uIU/mL (0.27-4.20) 01/17/23 03:20 All radiology interpretation(s) finalized by discharge EKG Data EKG 1: I personally reviewed and interpreted this EKG as follows: EKG interpretation date: 01/17/23 EKG interpretation time: 03:07 Prior EKG tracings: not available for review Interpretation: EKG showed ventricular rate 61 beats minute, AK interval 237, QRS duration 100, QTc of 400, sinus rhythm with first-degree AV block, left axis deviation, right incomplete bundle branch block, EKG 2: I personally reviewed and interpreted this EKG as follows: EKG interpretation date: 01/17/23 EKG interpretation time: 05:32 Prior EKG tracings: available for review Interpretation: EKG shows ventricular rate 41 beats a minute, AK interval 222, QRS duration 108, QTc of 4 1, sinus bradycardia with first-degree AV block, incomplete right bundle branch block Discharge Plan Discharge Patient Disposition: Home Clinical Impression: Tachycardia Hypertension Qualifiers: Hypertension type: unspecified Qualified Code(s): I10 - Essential (primary) hypertension Condition: Stable Prescriptions: No Action fluticasone propionate [Flovent HFA] 220 mcg/actuation HFA aerosol inhaler 1 puff inhalation BID albuterol sulfate 90 mcg/actuation HFA aerosol inhaler 2 puff inhalation Q6H PRN (Reason: shortness of breath or wheezing) Qty: 8.5 5RF levothyroxine [Synthroid] 137 mcg tablet 137 mcg PO DAILY Qty: 90 3RF Rx Instructions: take 1 tablet daily Discharge Orders: Discharge ED (Routine); Ordered 01/17/23 Ordered By: Onur Mcnally Referrals: Astrid Lai MD [Primary Care Provider] - 1 week Patient Instructions: Hypertension (ED), Tachycardia (ED) Activity Restrictions/Additional Instructions: Your work-up in the ER was essentially benign. This did not show any acute cause of your episodic hypertension and tachycardia. Please follow-up with your family practice physician within the next 7 to 10 days for further evaluation and treatment as needed. Coding Level of Care Code ED [employer] for Chg Jake
[2023-01-17 03:46] VITALS: BP 156/78; PULSE 48; RESP 30; O2SAT 96
[2023-01-17 03:56] LABS: INR 0.96 (0.8-1.2)
[2023-01-17 04:03] LABS: Troponin(5th) Baseline < 6 ng/L (0-10)
[2023-01-17 04:10] LABS: Alanine Aminotransferase 21 U/L (0-33); Albumin Level 4.4 g/dL (3.5-5.2); Alkaline Phosphatase 63 U/L (35-105); Aspartate Amino Transferase 25 U/L (0-32); Blood Urea Nitrogen 22 mg/dL (8-23); Calcium 9.3 mg/dL (8.5-10.5); Carbon Dioxide 25 mmol/L (22-29); Chloride 108 mmol/L (98-107); Globulin 2.1 g/dL (1.3-4.6); Glomerular Filtration Rate 70.9 mL/min (90-130); Glucose 82 mg/dL (65-115); Magnesium 2.4 mg/dL (1.7-2.3); Osmolality Calculated 300 mOsm/kg (285-295); Sodium 144 mmol/L (136-145); Thyroid Stimulating Hormone 1.55 uIU/mL (0.27-4.20); Total Bilirubin 0.4 mg/dL (0.15-1.2); Total Protein 6.5 g/dL (6.6-8.7)
[2023-01-17 04:11] LABS: Anion Gap 14.9 (5-19); Potassium 3.9 mmol/L (3.5-5.1)
--- NOTE | 2023-01-17 04:42 | PC.NURSE ---
Pt. resting in bed with no needs at this time. Pt. on oxygen when arriving at the ER. Pt. placed on room air to check baseline o2 saturation. Pt. placed on oxygen when oxygen saturation went down to 90% on room air.
[2023-01-17 05:11] VITALS: BP 139/74; PULSE 47; RESP 21; O2SAT 96
--- NOTE | 2023-01-17 05:32 | ECG_ITS ---
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 Measurements Intervals [place] Rate: 41 P: 51 MN: 222 QRS: -16 QRSD: 108 T: 14 QT: 465 QTc: 385 Interpretive Statements SINUS BRADYCARDIA WITH FIRST DEGREE AV BLOCK INCOMPLETE RIGHT BUNDLE BRANCH BLOCK [90+ ms QRS DURATION, TERMINAL R IN V1/V2, 40+ ms S IN I/aVL/V4/V5/V6] SEPTAL MYOCARDIAL INFARCTION , PROBABLY OLD [40+ ms Q WAVE IN V1/V2] Compared to ECG 01/17/2023 03:07:28 Sinus rhythm no longer present Left-axis deviation no longer present Myocardial infarct finding still present Electronically Signed On 01-17-2023 20:55:08 INSURANCE ADJUSTOR by Soheila Harris M.D. [id number]
[2023-01-17 05:43] LABS: Troponin 5 2HR Delta 2.30001 ABS# (0-10)
[2023-01-17 05:45] VITALS: BP 132/70; PULSE 55; RESP 16; O2SAT 95
== END 2023-01-17 05:46 | disposition home or self-care (01) ==
PROVIDERS: Emergency Provider Emergency Medicine; PCP Family Medicine
DX: I10 Essential (primary) hypertension (principal); R00.0 Tachycardia, unspecified; Z87.891 Personal history of nicotine dependence
CPT/HCPCS: 71045; 80053; 83735; 84443; 84484; 85025; 85610; 93005; 99285

== ENCOUNTER → 2023-01-21 10:29 | Outpatient (BNVA) | payer MEDICARE, SELFPAY | PROVIDERS: PCP Family Medicine; Visit Provider Family Medicine | DX: E03.9 Hypothyroidism, unspecified (principal) | CPT/HCPCS: 84439; 84443 ==

== ENCOUNTER → 2023-02-13 11:02 | Outpatient (BNVA) | payer MEDICARE, SELFPAY | PROVIDERS: PCP Family Medicine; Visit Provider Internal Medicine Cardiovascular Disease | DX: I83.813 Varicose veins of bilateral lower extremities with pain (principal); I48.91 Unspecified atrial fibrillation | CPT/HCPCS: 99214 ==

== ENCOUNTER 2023-03-05 06:55 | Outpatient (CLI) | payer MEDICARE, SELFPAY ==
--- NOTE | 2023-03-05 07:15 | USR_ITS ---
PROCEDURE INFORMATION: Exam: US Abdomen, Limited; Right Upper Quadrant Exam date and time: 03/05/2023 7:14 AM Age: 72 years old Clinical indication: Abdominal pain; Additional info: Upper abdominal pain, R/O gallbladder TECHNIQUE: Imaging protocol: Real time ultrasound of the abdomen with image documentation. Limited exam focused on the right upper quadrant. COMPARISON: US abdomen limited [id number] 10/29/2017 8:49 AM FINDINGS: Liver: Normal. No masses. Gallbladder: Normal. No gallstones. There is no gallbladder wall thickening. Biliary ducts: Normal. No stones. No dilation. Pancreas: Visualized pancreas is unremarkable. Right kidney: Normal. No mass. No hydronephrosis. US/US abdomen limited [id number] IMPRESSION: No acute findings.
== END 2023-03-05 06:56 | disposition home or self-care (01) ==
LOC: RAD 06:56
PROVIDERS: PCP Family Medicine; Visit Provider Family Medicine
DX: R10.10 Upper abdominal pain, unspecified (principal)
CPT/HCPCS: 76705

== ENCOUNTER → 2023-04-30 11:47 | Outpatient (BNVA) | payer MEDICARE, SELFPAY | PROVIDERS: PCP Family Medicine; Visit Provider Family Medicine | DX: E03.9 Hypothyroidism, unspecified (principal); R10.9 Unspecified abdominal pain | CPT/HCPCS: 80061; 84439; 84443; 84481 ==

== ENCOUNTER → 2023-05-15 11:23 | Outpatient (BNVA) | payer MEDICARE, SELFPAY | PROVIDERS: PCP Family Medicine; Visit Provider Family Medicine | DX: R10.9 Unspecified abdominal pain (principal) | CPT/HCPCS: 85025; 99213 ==

== ENCOUNTER 2023-05-20 08:30 | Outpatient (CLI) | payer MEDICARE, SELFPAY ==
--- NOTE | 2023-05-20 09:00 | MM_ITS ---
WS: [id number] DIAGNOSTIC BILATERAL DIGITAL BREAST TOMOSYNTHESIS MAMMOGRAPHY WITH CAD HISTORY: abnormal mammogram, follow-up LEFT breast nodule. COMPARISON: 01/17/2016, 05/08/2022, 11/07/2021 and 03/02/2020 TECHNIQUE: Bilateral craniocaudad, mediolateral oblique, and mediolateral views are submitted with to mosynthesis and SM. Spot compression LEFT CC and MLO. Computer aided detection utilized. Breast composition: There are scattered areas of fibroglandular density. Reidentified is the 20 mm no dule in the posterior inferior LEFT breast which actually may be in the skin. There is been no interv al change. Very benign in appearance. No suspicious mass or calcification. IMPRESSION: MM/[place] [id number] BI-RADS: 2-Benign FOLLOW UP: 1 Year Follow-up
== END 2023-05-20 08:31 | disposition home or self-care (01) ==
LOC: RAD 08:32
PROVIDERS: PCP Family Medicine; Visit Provider Family Medicine
DX: R92.8 Other abnormal and inconclusive findings on diagnostic imaging of breast (principal); N63.20 Unspecified lump in the left breast, unspecified quadrant; R92.323 Mammographic fibroglandular density, bilateral breasts
CPT/HCPCS: 77062; G0279

== ENCOUNTER 2023-06-12 07:47 | Outpatient (CLI) | payer MEDICARE, SELFPAY ==
--- NOTE | 2023-06-12 08:00 | CT_ITS ---
WS: [id number] CT chest wo con [id number] HISTORY: showed Spiculated nodule with groundglass attenuation in the TECHNIQUE: Axial imaging performed through the thorax. Coronal and sagittal reformats are submitted. All CT scans at [facility] use at least one of these dose optimization techniques: automated exposure control; mA and/or kV adjustment per patient size (includes targeted exams where dose is mat ched to clinical indication); or iterative reconstruction. CONTRAST: None DLP: 255.62 mGy.cm COMPARISON: PET/CT 11/30/2022, chest CT 10/30/2022 and 08/06/2022, neck CT 06/25/2022 Lungs and central airway: Reidentified is a spiculated nodule at the RIGHT lung apex measuring 1.9 x 1.0 cm. This was minimally positive on the PET/CT recently. As compared to 06/25/2022 there is been no increase in size. There is a solid component with surrounding groundglass attenuation. There are sca ttered benign pulmonary granulomas. No new pulmonary mass or nodule. No pneumonia. Pleura: Normal. No pleural effusion. Heart and pericardium: Heart is markedly enlarged. No pericardial effusion. Mediastinum and prudence: Mediastinum evaluation for adenopathy is limited without IV contrast. There are a few lymph nodes with fullness in the hilar regions. Some of these lymph nodes are calcified. Vessels: Mild atherosclerosis aorta. No aneurysm. Normal size pulmonary artery. Chest wall and lower neck: No soft tissue masses. Upper abdomen: Negative. Osseous structures: No destructive process. IMPRESSION: 1. Stable spiculated nodule with associated groundglass attenuation at the RIGHT lung apex. Nodule m easures 1.9 x 1.0 cm and similar in size and appearance as compared to 06/25/2022. PET/CT demonstrated low-level activity favoring a benign etiology. Recommend continued 6-month imaging follow-up to ensu re longer-term stability. 2. Marked cardiomegaly, unchanged.
== END 2023-06-12 07:48 | disposition home or self-care (01) ==
LOC: RAD 07:48
PROVIDERS: PCP Family Medicine; Visit Provider Internal Medicine Pulmonary Disease
DX: R91.1 Solitary pulmonary nodule (principal); R91.8 Other nonspecific abnormal finding of lung field
CPT/HCPCS: 71250

== ENCOUNTER → 2023-06-27 09:55 | Outpatient (BNVA) | payer MEDICARE, SELFPAY | PROVIDERS: PCP Family Medicine; Visit Provider Internal Medicine Pulmonary Disease | DX: R91.1 Solitary pulmonary nodule (principal); I51.7 Cardiomegaly; R05.3 Chronic cough; Z87.891 Personal history of nicotine dependence | CPT/HCPCS: 99214 ==

== ENCOUNTER → 2023-07-23 09:49 | Outpatient (BNVA) | payer MEDICARE, SELFPAY | PROVIDERS: PCP Family Medicine; Visit Provider Nurse Practitioner Family | DX: I48.0 Paroxysmal atrial fibrillation (principal); Z87.891 Personal history of nicotine dependence; Z79.82 Long term (current) use of aspirin | CPT/HCPCS: 99213 ==

== ENCOUNTER → 2023-11-09 13:56 | Outpatient (BNVA) | payer MEDICARE, SELFPAY | PROVIDERS: PCP Family Medicine; Visit Provider Emergency Medicine | DX: J02.9 Acute pharyngitis, unspecified (principal) | CPT/HCPCS: 87071; 87880 ==

== ENCOUNTER → 2024-02-24 13:35 | Outpatient (BNVA) | payer MEDICARE, SELFPAY | PROVIDERS: PCP Family Medicine; Visit Provider Internal Medicine | DX: I10 Essential (primary) hypertension (principal) | CPT/HCPCS: 36415; 84439; 84443 ==

== ENCOUNTER 2024-05-07 09:11 | Outpatient (CLI) | payer MEDICARE, SELFPAY ==
[2024-05-07] MEDS: iohexol 350 mg/mL 500 mL Btl (per mL) IV (09:29)
--- NOTE | 2024-05-07 09:30 | CT_ITS ---
WS: [id number] CT chest w con* [id number] HISTORY: f/u spiculated right lung lesion TECHNIQUE: Axial imaging performed through the thorax. Coronal and sagittal reformats are submitted. All CT scans at [facility] use at least one of these dose optimization techniques: automated exposure control; mA and/or kV adjustment per patient size (includes targeted exams where dose is matched to clinical indication); or iterative reconstruction. CONTRAST: Omnipaque 350; 100 mL IV. DLP: 296.84 mGy.cm COMPARISON: 11/04/2023, 06/12/2023, 08/06/2022, PET/CT 11/30/2022 Lungs and central airway: Reidentified is the irregular nodular subsolid component at the RIGHT apex now measuring 2.5 x 1.4 cm. Not significantly increased in size since the most recent exams. Calcified granuloma RIGHT lower lobe. No new mass or pulmonary nodule. No pneumonia. Stable pleural thickening anterior LEFT lower lobe and atelectasis at the lingula. Pleura: Normal. No pleural effusion. Heart and pericardium: Mildly enlarged heart. Mediastinum and prudence: Mild enlarged Vessels: Mild atherosclerosis aorta with ectasia. Normal size pulmonary artery. Chest wall and lower neck: Stable heavily calcified RIGHT thyroid nodule measures 11 mm. Upper abdomen: No adrenal mass. Visualized liver is negative. Osseous structures: No destructive process. CT/CT chest w con* [id number] IMPRESSION: 1. No interval change in the irregular, mixed attenuation nodule at the RIGHT apex measuring 2.5 x 1.4 cm. Recommend continued yearly chest CT surveillance d ue to the appearance of the spiculated nodule which contains solid and subsolid components. PET/CT also described probably benign lesion. 2. No mediastinal or hilar adenopathy. 3. Ectatic thoracic aorta with no aneurysm.
== END 2024-05-07 09:12 | disposition home or self-care (01) ==
LOC: RAD 09:13
PROVIDERS: PCP Family Medicine; Visit Provider Family Medicine
DX: R91.1 Solitary pulmonary nodule (principal); I77.810 Thoracic aortic ectasia; J84.10 Pulmonary fibrosis, unspecified; J92.9 Pleural plaque without asbestos; J98.11 Atelectasis; I51.7 Cardiomegaly; R93.5 Abnormal findings on diagnostic imaging of other abdominal regions, including retroperitoneum; I70.0 Atherosclerosis of aorta; E04.1 Nontoxic single thyroid nodule
CPT/HCPCS: 71260

== ENCOUNTER → 2024-07-07 10:33 | Outpatient (BNVA) | payer MEDICARE, SELFPAY | PROVIDERS: PCP Family Medicine; Visit Provider Nurse Practitioner | DX: R39.9 Unspecified symptoms and signs involving the genitourinary system (principal); N39.0 Urinary tract infection, site not specified | CPT/HCPCS: 81000; 87086 ==

== ENCOUNTER → 2024-09-06 14:47 | Outpatient (BNVA) | payer MEDICARE, SELFPAY | PROVIDERS: PCP Family Medicine; Visit Provider Internal Medicine | DX: I48.91 Unspecified atrial fibrillation (principal); Z79.82 Long term (current) use of aspirin; I83.813 Varicose veins of bilateral lower extremities with pain; K21.9 Gastro-esophageal reflux disease without esophagitis; E03.9 Hypothyroidism, unspecified; I10 Essential (primary) hypertension; M79.7 Fibromyalgia; Z87.891 Personal history of nicotine dependence | CPT/HCPCS: 99214 ==

== ENCOUNTER → 2024-09-23 10:54 | Outpatient (BNVA) | payer MEDICARE, SELFPAY | PROVIDERS: PCP Family Medicine; Visit Provider Internal Medicine | DX: I10 Essential (primary) hypertension (principal); E03.9 Hypothyroidism, unspecified | CPT/HCPCS: 84439; 84443; 99214 ==

== ENCOUNTER 2025-01-05 11:25 | Outpatient (CLI) | payer MEDICARE, SELFPAY ==
--- NOTE | 2025-01-05 11:36 | MM_ITS ---
WS: [id number] BILATERAL SCREENING DIGITAL TOMOSYNTHESIS MAMMOGRAM WITH CAD HISTORY: SCREENING COMPARISON: 05/20/2023, 05/08/2022, 11/07/2021, 10/23/2021 Bilateral CC and MLO views with tomosynthesis and synthetic mammography submitted. Computer aided detection analyzed. Breast composition: There are scattered areas of fibroglandular density. No suspicious masses, microcalcifications or architectural distortion. Stable asymmetries in each breast. No suspicious grouping of calcifications. MM/MM scr BI tomosynthesis [id number] IMPRESSION: BI-RADS: 2 - Benign. FOLLOW UP: 1 Year Follow-up
== END 2025-01-05 11:26 | disposition home or self-care (01) ==
LOC: RAD 11:27
PROVIDERS: PCP Family Medicine; Visit Provider Family Medicine
DX: Z12.31 Encounter for screening mammogram for malignant neoplasm of breast (principal); R92.323 Mammographic fibroglandular density, bilateral breasts; N64.89 Other specified disorders of breast
CPT/HCPCS: 77063; 77067

== ENCOUNTER → 2025-01-31 10:09 | Outpatient (BNVA) | payer MEDICARE, SELFPAY | PROVIDERS: PCP Family Medicine; Visit Provider Family Medicine | DX: Z13.6 Encounter for screening for cardiovascular disorders (principal); Z13.1 Encounter for screening for diabetes mellitus; E55.9 Vitamin D deficiency, unspecified; E03.9 Hypothyroidism, unspecified; I10 Essential (primary) hypertension; I48.0 Paroxysmal atrial fibrillation | CPT/HCPCS: 80053; 80061; 82306; 82607; 84443; 85025 ==